=== PATIENT | male | born 1975 | race Caucasian/White ===

== ENCOUNTER → 2017-01-30 | Outpatient (CLI) | payer BC ==
--- NOTE | 2017-01-30 14:29 | KCIC ---
MRI ORBIT without contrast HISTORY: Exophthalmus right eye, right eye swelling TECHNIQUE: Noncontrast multiplanar, multi sequential MR imaging was performed of the orbits. COMPARISON: None FINDINGS: There is no intra-axial mass effect or midline shift. Ventricular size is within normal limits. There is no evidence of recent infarct. The globes are symmetric in size and signal features. There is motion for coronal images, limits evaluation for signal abnormality of the optic nerves. Optic nerves are symmetric in size, no discrete mass of the optic nerves identified on this noncontrast exam. No discrete intraconal mass is identified on either side. Some heterogeneity of the intraconal fat bilaterally is probably artifactual. Inferior rectus muscles are somewhat enlarged relative to the other extraocular muscles. There is mild to moderate mucosal thickening of the right maxillary sinus greater inferiorly, also mucous retention cyst up to 1.1 cm. IMPRESSION: 1. 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 Electronically signed by: Arthur Carranza MD (01/30/2017 2:25 PM) [id number]
== END | disposition home or self-care (01) ==
LOC: KCIC MRI 12:20
PROVIDERS: ATTEND Physician Assistant Medical
DX: H05.20 Unspecified exophthalmos (principal); H57.8 Other specified disorders of eye and adnexa
CPT/HCPCS: 70540